=== PATIENT | female | born 1950 | race African-American/Black ===

== ENCOUNTER 2022-06-23 16:36 | Inpatient (IN) | payer OTHER ==
[~2022-06-23] VITALS: Ht 167.6 cm; Wt 58.1 kg
[2022-06-23 16:36] VITALS: BP 70/33
--- NOTE | 2022-06-23 17:08 | NUR ---
IV started, bloodwork obtained, handed to REHAN Andrade at bedside.
[2022-06-23 17:13] LABS: BASOPHILS % (AUTO) 0.2 % (0.0-2.0); HEMATOCRIT 35.7 % (36-48); HEMOGLOBIN 11.9 g/dL (12.0-16.0); LYMPHOCYTES # (AUTO) 0.8 K/uL (2.5-16.5); LYMPHOCYTES % (AUTO) 8.1 % (20.5-51.1); MEAN CORPUSCULAR HEMOGLOBIN 33 pg (27-31); MEAN CORPUSCULAR HGB CONC 33 g/dL (33-37); MEAN CORPUSCULAR VOLUME 98.5 fL (80-94); MONOCYTES # (AUTO) 0.4 K/uL (0.8-1.0); MONOCYTES % (AUTO) 4.1 % (1.7-9.3); NEUTROPHILS # (AUTO) 9.1 K/uL (1.8-7.7); NEUTROPHILS % (AUTO) 87.6 % (42.2-75.2); PLATELET COUNT (AUTO) 115 K/uL (140-450); RED BLOOD CELL COUNT(AUTO) 3.63 MIL/uL (4.20-5.40); RED CELL DISTRIBUTION WIDTH 16.4 % (11.6-13.7); WHITE BLOOD COUNT (AUTO) 10.3 K/uL (4.8-10.8)
[2022-06-23 17:25] LABS: PROTHROMBIN TIME 12.1 secs (10.8-13.4)
[2022-06-23] MEDS ORDERED: NACL 0.9% 1,000 ML IV ONE (17:30)
--- NOTE | 2022-06-23 17:30 | NUR ---
DR. VENTURA EVALUATING PATIENT AT BEDSIDE.
[2022-06-23] MEDS ORDERED: PANTOPRAZOLE 40 MG INJ VIAL IVP ONE (17:40)
[2022-06-23] MEDS ORDERED: PIPERACILLIN/TAZOBACTAM 3.375 GM in DEXTROSE 5% 50 ML IV ONE (17:40)
[2022-06-23] MEDS ORDERED: VANCOMYCIN 1,000 MG in DEXTROSE 5% 250 ML IV ONE (17:40)
--- NOTE | 2022-06-23 17:40 | NUR ---
RYDER-CARE PROVIDED, PATIENT WAS NOTED WITH A MODERATE AMOUNT OF BLOOD DRAINING FROM HER RECTUM. DR. VENTURA WAS MADE AWARE. PATIENT WAS MADE CLEAN AND DRY.
[2022-06-23 17:41] LABS: ALBUMIN 2.1 g/dL (3.4-5.0); ANION GAP 13.1 (8-16); ASPARTATE AMINOTRANSFERASE 25 U/L (15-37); CARBON DIOXIDE 25.9 mmol/L (21-32); CHLORIDE 107 mmol/L (98-107); CREATININE 0.5 mg/dL (0.6-1.3); GLUCOSE 108 mg/dL (74-106); LIPASE 92 U/L (73-393); SODIUM SERUM 142 mmol/L (136-145); TOTAL BILIRUBIN 0.6 mg/dL (0.0-1.0); UREA NITROGEN, BLOOD 13 mg/dL (7-18)
--- NOTE | 2022-06-23 18:30 | NUR ---
71 y/o female biba from home d/t rectal bleeding x today. Per patients daughter, at noon she changed her moms diaper and saw nothing but blood in diaper. Patient had no BM. Per daughter patient is at baseline. Patient denies any pain at this time. Medical History: HTN, HLD, Brain tumors, Right sided deficit, quadriplegic, seizures NKDA
--- NOTE | 2022-06-23 18:40 | NUR ---
Consent signed per patients daughter agreeing to administration of blood. Blood has been type and crossmatched. Blood sent from blood bank. Information on unit of blood checked against patient wristband at bedside by two nurses. All information matches. Patient or responsible democrat informed of potential complications associated with blood transfusion. Informed of possible transfusion reaction symptoms. Aware of need to notify nurse at once of itching, shortness of breath, flushing, feeling of impending doom, or other symptoms not previously present. Vital signs taken within 5 minutes prior to initiation of transfusion. RN/TRAY WORKER will remain with patient for first 15 minutes of transfusion at which time vital signs will be re-assessed.
--- NOTE | 2022-06-23 18:55 | NUR ---
NO REACTION NOTED FROM BLOOD TRANSFUION. RATE INCREASED. PATIENT TOLERATING WELL. NO CHANGE IN VITAL SIGNS.
[2022-06-23] MEDS ORDERED: ACETAMINOPHEN 325 MG TAB PO PRN ×2 (19:25→19:30)
[2022-06-23] MEDS ORDERED: MORPHINE SULFATE 2 MG/ML SYR IVP PRN ×2 (19:25→19:30)
[2022-06-23] MEDS ORDERED: ONDANSETRON 4 MG/2 ML VIAL IVP PRN ×2 (19:25→19:30)
[2022-06-23] MEDS ORDERED: DOCUSATE SODIUM 100 MG GELCAP PO PRN (19:30)
[2022-06-23] MEDS ORDERED: ZOLPIDEM 10 MG TAB PO PRN (19:30)
[2022-06-23] MEDS ORDERED: VANCOMYCIN PER PHARMACY MC PRN (19:30)
[2022-06-23] MEDS ORDERED: MAG SULF 2000 MG/WATER PREMIX 50 ML IV PRN (19:30)
[2022-06-23] MEDS ORDERED: POTASSIUM CHLORIDE 10 MEQ TABER PO PRN (19:30)
--- NOTE | 2022-06-23 19:30 | NUR ---
Patient report given to BAHMAN Hoffman. Transfer of care at this time. Blood transfusion continues to run. Patient tolerating well.
--- NOTE | 2022-06-23 19:48 | NUR ---
per ermd stop blood transfusion and take pt to ct. blood transfusion stopped at 1947. vss temp 97.9 hr: 71 rr 14 113/73
--- NOTE | 2022-06-23 19:55 | NUR ---
PT TAKEN TO CT
--- NOTE | 2022-06-23 19:56 | NUR ---
heather daughter [phone]
[2022-06-23] MEDS ORDERED: VANCOMYCIN 1GM/DEXT 5% PREMIX 200 ML IV SCH (21:00)
--- NOTE | 2022-06-23 22:10 | NUR ---
flight radio operator at bedside
[2022-06-23] MEDS ORDERED: VANCOMYCIN 1,000 MG VIAL ONE (22:11)
--- NOTE | 2022-06-23 22:35 | NUR ---
Chart checked and completed.
--- NOTE | 2022-06-23 22:35 | NUR ---
Patient will be admitted to care of . Admited to TELEMTRY. Will go to [facility]. Belongings list completed. Report to EBONIE.
--- NOTE | 2022-06-23 22:35 | NUR ---
DR VENTURA AT BEDSIDE EXPLAINING ADMIT STAY TO PT AND PT DAUGHTER CHANTE
[2022-06-23 23:06] VITALS: BP 124/84
[2022-06-23 23:30] LABS: BASOPHILS % (AUTO) 0.1 % (0.0-2.0); HEMATOCRIT 35.5 % (36-48); LYMPHOCYTES # (AUTO) 0.9 K/uL (2.5-16.5); LYMPHOCYTES % (AUTO) 8.4 % (20.5-51.1); MEAN CORPUSCULAR HEMOGLOBIN 33 pg (27-31); MEAN CORPUSCULAR HGB CONC 34 g/dL (33-37); MEAN CORPUSCULAR VOLUME 97.6 fL (80-94); MONOCYTES # (AUTO) 0.6 K/uL (0.8-1.0); MONOCYTES % (AUTO) 5.5 % (1.7-9.3); PLATELET COUNT (AUTO) 92 K/uL (140-450); RED BLOOD CELL COUNT(AUTO) 3.64 MIL/uL (4.20-5.40); RED CELL DISTRIBUTION WIDTH 15.7 % (11.6-13.7); WHITE BLOOD COUNT (AUTO) 10.5 K/uL (4.8-10.8)
[2022-06-23] MEDS: NACL 0.9% 1,000 ML IV SCH (23:36)
[2022-06-23] MEDS ORDERED: PIPERACILLIN/TAZOBACTAM 2.25 GM VIAL IV ONE (23:38)
[2022-06-23] MEDS: PIPERACILLIN/TAZOBACTAM 2.25 GM in DEXTROSE 5% 50 ML IV SCH (23:51)
[2022-06-24] VITALS (8 sets, daily range): BP systolic 102–151; BP diastolic 35–101
--- NOTE | 2022-06-24 00:28 | NUR ---
WAIT KIYA TO PROVIDE STRAIGHT CATH .
--- NOTE | 2022-06-24 00:41 | NUR ---
PT'S DAUGHTER - CHANTE [phone] - WILL CALL ABOUT PT'S VACCINATION HX .
--- NOTE | 2022-06-24 03:32 | NUR ---
PER DR. STEPHANIE CAI HGB , HCT NOW - THEN TRANSFUSE [address] NOBLE STAT . - WILL CARRY OUT . Addendum: 06/24/22 at 0439 by Gabriela Iglesias RN URINE COLLECTED VIA S STRAIGHT CATH - COLLECTED NON BLOODY URINE - PROCEDURE - TOLERATED BY PT - URINE SPECIMEN WILL SEND TO LAB .
--- NOTE | 2022-06-24 03:40 | NUR ---
DIAPER CHANGE - THERE IS 1 LARGE DIAPER FULLY SOAKED OF BLOOD - BP 116/78 , WI 66 , O2 SAT 96 5 - WILL REFER TO DR BROWN . Addendum: 06/24/22 at 736 by Gabriela Iglesias RN PER DR. BROWN REFER TO DR. NOBLE STAT Addendum: 06/24/22 at 0738 by Gabriela Iglesias RN PER DR NOBLE TRANSFER TOP ICU - FOR BOWEL PREP , FOR COLONOSCOPY AT 10 AM - INFORM LIQUEFACTION PLANT OPERATOR , ICU . Addendum: 06/24/22 at 0739 by Gabriela Iglesias RN INFORM CHANTE - DR. NOBLE PLANS TO DO COLONOSCOPY TODAY BY DR. NOBLE . CHANTE NEEDS FURTHER EXPLANTION ABOUT THE PROCEDURE PRIOR TO GIVE TEL. CONSENT - WILL ENDORSE TO ICU NURSE .
[2022-06-24 03:56] LABS: BASOPHILS % (AUTO) 0.2 % (0.0-2.0); HEMATOCRIT 32.4 % (36-48); HEMOGLOBIN 10.9 g/dL (12.0-16.0); LYMPHOCYTES # (AUTO) 1.1 K/uL (2.5-16.5); LYMPHOCYTES % (AUTO) 11.8 % (20.5-51.1); MEAN CORPUSCULAR HEMOGLOBIN 33 pg (27-31); MEAN CORPUSCULAR HGB CONC 34 g/dL (33-37); MEAN CORPUSCULAR VOLUME 98.6 fL (80-94); MONOCYTES # (AUTO) 0.6 K/uL (0.8-1.0); MONOCYTES % (AUTO) 6.2 % (1.7-9.3); NEUTROPHILS % (AUTO) 81.8 % (42.2-75.2); PLATELET COUNT (AUTO) 89 K/uL (140-450); RED BLOOD CELL COUNT(AUTO) 3.28 MIL/uL (4.20-5.40); WHITE BLOOD COUNT (AUTO) 9.8 K/uL (4.8-10.8)
--- NOTE | 2022-06-24 04:59 | NUR ---
PHONE CALL TO DR BROWN, MADE AWARE PT WILL BE TRANSFERRED TO ICU AT THIS TIME.PHYSICIAN ORDERED 2 UNITS PRBC, LATEST HGB 10.9/HCT 32.4(035), DR BROWN SAID TO JUST GIVE 1 UNIT PRBC FOR NOW.ALSO NOTIFIED DR BROWN THAT THERE WAS AN ORDER FOR PROTONIX 80MG IVP X1 EARLIER, NOT GIVEN YET, PHYSICIAN SAID TO GIVE THE PROTONIX 80MG IVP WHEN PT GETS TO ICU AND THEN PROTONIX 40MG DAILY.
[2022-06-24] MEDS ORDERED: PANTOPRAZOLE 40 MG INJ VIAL IVP SCH ×2 (05:10→09:00)
--- NOTE | 2022-06-24 05:10 | NUR ---
TRANSFER TO ICU - PT - STABLE .
--- NOTE | 2022-06-24 05:15 | NUR ---
RECEIVED PT FROM TELEMETRY AWAKE,ALERT.SR NOTED ON MONITOR.ON ROOM AIR.NO SOB NOTED.PERIPHERAL IV TO RT F/A G20 INTACT, ORDERED IVF INFUSING, NPO MAINTAINED, W/G TUBE CLAMPED.INCONTINENT OF URINE.SKIN INTACT.SLIGHT RECTAL BLEEDING NOTED,DARK RED IN COLOR.DENIES PAIN AT THIS TIME.
[2022-06-24] MEDS ORDERED: SUPREP BOWEL PREP KIT 354 ML SOLN.RECON PO SCH ×2 (05:35→09:00)
[2022-06-24] MEDS: NACL 0.9% 1,000 ML IV SCH (05:36)
[2022-06-24] MEDS ORDERED: PIPERACILLIN/TAZOBACTAM 2.25 GM VIAL IV ONE ×2 (06:00→06:01)
--- NOTE | 2022-06-24 06:30 | NUR ---
STARTED 1 UBIT BLOOD TRANSFUSION PER DR BROWN'S ORDER.VERIFIED WITH RN CAROL CASTILLO. PT AFEBRILE, WITH SIGNED CONSENT
--- NOTE | 2022-06-24 06:35 | NUR ---
PHONE CALL FROM BRISEIDA OWUSU, HE SAID HE ALREADY SPOKE WITH PTS DAUGHTER CHANTE, TO GET A CONSENT FROM PTS DAUGHTER. ALSO TO GIVE THE SURE PREP 177ML THEN 2ND BOTTLE TO BE GIVEN AT 10 AM, ALSO TO GIVE 200ML OF WATER EVERY 2 HOURS X 2 DOSES.TO GET CONSENT FOR EGD AND COLONOSCOPY
[2022-06-24 07:17] LABS: APPEARANCE,URINE SL CLOUDY (CLEAR); BILIRUBIN,URINE NEGATIVE (NEGATIVE); BLOOD, URINE 2+ (NEGATIVE); COLOR,URINE YELLOW (YELLOW); LEUKOCYTE ESTERASE ,URINE 1+ (NEGATIVE); NITRITE, URINE NEGATIVE (NEGATIVE); PH,URINE 6.5 (5.0-9.0); UGLUCOSE NEGATIVE (NEGATIVE)
[2022-06-24 07:25] LABS: RBC,URINE 0-5 /HPF (0-5)
--- NOTE | 2022-06-24 07:35 | NUR ---
RECEIVED REPORT FROM BRENDON MOTTA FOR CONTINUITY OF CARE. PT A&OX0, UNABLE TO ANSWER QUESTIONS. SR ON MONITOR. 20G IV TO R FA INFUSING NS AT 10 ML/HR. 20G IV TO L FA INFUSING BLOOD TRANSFUSION AT 120 ML/HR. ROOM AIR. G-TUBE IN PLACE, CLAMPED. BOWEL SOUNDS ACTIVE IN ALL QUADRANTS. GENERALIZED WEAKNESS. STANDARD PRECAUTION. CALL LIGHT WITHIN REACH, BED IN LOWEST POSITION. Addendum: 06/24/22 at 0848 by Africa Cooper RN PT ABLE TO ANSWER YES OR NO QUESTIONS.
--- NOTE | 2022-06-24 07:36 | NUR ---
REPORT GIVEN TO CL MOTTA FOR CONTINUITY OF CARE.ONGOING BLOOD TRANSFUSION, NO UNTOWARD REACTIONS NOTED.PT DENIES PAIN.STILL ON ROOM AIR.NO SOB NOTED
--- NOTE | 2022-06-24 07:45 | NUR ---
INFORM CHANTE THE PT.'S DAUGHTER - HER TRANSFERRED TO ICU .
--- NOTE | 2022-06-24 08:05 | NUR ---
SEEN AND EXAMINED BY DR. BROWN.
--- NOTE | 2022-06-24 09:02 | NUR ---
PATIENT HAS BEEN SCREENED AND CATEGORIZED HIGH NUTRITION RISK. PATIENT WILL BE SEEN WITHIN 1-2 DAYS OF ADMISSION. REFERRAL RECEIVED FOR TUBE FEEDING SUSANNE GRIFFITHS [address]
--- NOTE | 2022-06-24 09:50 | NUR ---
SEEN AND EXAMINED BY DR. SANTORO.
[2022-06-24] MEDS: PIPERACILLIN/TAZOBACTAM 2.25 GM in DEXTROSE 5% 50 ML IV SCH ×3 (10:00→17:49)
--- NOTE | 2022-06-24 10:02 | NUR ---
GAVE SECOND BOTTLE OF SURE PREP VIA G-TUBE. FLUSHED WITH 500ML WATER. NO BM OF NOW. Addendum: 06/24/22 at 1046 by Africa Cooper RN TREMAYNE
--- NOTE | 2022-06-24 10:55 | NUR ---
SON AT BEDSIDE. UPDATED ON POC. NO FURTHER QUESTIONS AT THIS TIME.
--- NOTE | 2022-06-24 11:13 | NUR ---
C/O ABD PAIN. MEDICATED WITH PRN MORPHINE 2MG.
[2022-06-24 11:19] LABS: BASOPHILS % (AUTO) 0.3 % (0.0-2.0); EOSINOPHILS % (AUTO) 0.1 % (0.0-4.0); HEMOGLOBIN 14.2 g/dL (12.0-16.0); LYMPHOCYTES # (AUTO) 2.4 K/uL (2.5-16.5); LYMPHOCYTES % (AUTO) 17.5 % (20.5-51.1); MEAN CORPUSCULAR HEMOGLOBIN 31 pg (27-31); MEAN CORPUSCULAR HGB CONC 33 g/dL (33-37); MEAN CORPUSCULAR VOLUME 93.7 fL (80-94); MONOCYTES # (AUTO) 0.8 K/uL (0.8-1.0); MONOCYTES % (AUTO) 6.1 % (1.7-9.3); NEUTROPHILS # (AUTO) 10.3 K/uL (1.8-7.7); PLATELET COUNT (AUTO) 108 K/uL (140-450); RED BLOOD CELL COUNT(AUTO) 4.59 MIL/uL (4.20-5.40); RED CELL DISTRIBUTION WIDTH 15.4 % (11.6-13.7); WHITE BLOOD COUNT (AUTO) 13.5 K/uL (4.8-10.8)
[2022-06-24 11:37] LABS: ALBUMIN 1.8 g/dL (3.4-5.0); ASPARTATE AMINOTRANSFERASE 27 U/L (15-37); CARBON DIOXIDE 21.1 mmol/L (21-32); CHLORIDE 113 mmol/L (98-107); CREATININE 0.4 mg/dL (0.6-1.3); GLUCOSE 94 mg/dL (74-106); MAGNESIUM 1.9 mg/dL (1.8-2.4); POTASSIUM 4.1 mmol/L (3.5-5.1); SODIUM SERUM 143 mmol/L (136-145); TOTAL BILIRUBIN 1.1 mg/dL (0.0-1.0); UREA NITROGEN, BLOOD 14 mg/dL (7-18)
--- NOTE | 2022-06-24 13:05 | NUR ---
06/24/22 RD INITIAL ASSESSMENT COMPLETED PLEASE REFER TO NUTRITION ASSESSMENT UNDER CARE ACTIVITY FOR ESTIMATED NUTRITIONAL NEEDS. 1. WHEN/IF MEDICALLY APPROPRIATE, RECOMMEND JEVITY 1.2 WITH A GOAL RATE OF 50 ML/HR WITH PROSOURCE TID -FWF: 150 ML Q6H OR PER MD -START AT 10 ML/HR AND INCREASE BY 10 ML Q4H TOLERATED -WILL PROVIDE 100% OF ESTIMATED NUTRIENT NEEDS 2. MONITOR GI SYMPTOMS AND GASTRIC RESIDUALS 3. RD TO FOLLOW-UP 2-3 DAYS, HIGH RISK SUSANNE GRIFFITHS RD
[2022-06-24] MEDS ORDERED: MIDAZOLAM 5 MG/5 ML VIAL ONE (13:25)
[2022-06-24] MEDS ORDERED: fentaNYL citrate 0.05 MG/ML VIAL ONE (13:25)
--- NOTE | 2022-06-24 13:40 | NUR ---
PT HAD LARGE BM, BRICK RED COLORED. LOOSE WITH SOME SOLID PIECES. CLEANED AND REPOSITIONED.
--- NOTE | 2022-06-24 13:45 | NUR ---
PT. WITH LOW VINCENZO SCALE AT MODERATE TO HIGH RISK, CONTINUE TO FOLLOW PRESSURE INJURY PREVENTION INTERVENTIONS. -POSITIONING: TURN AND REPOSITION PATIENT Q 2H OR SOONER USE PILLOWS TO KEEP BONY PROMINENCES FROM DIRECT CONTACT WITH SURFACES USE REPOSITIONING WEDGES TO PROVIDE 30-DEGREE ANGLE FOR SIDE LYING POSITIONS OFFLOADING OR FOAM DRESSING TO ALL TUBING TO PREVENT MEDICAL DEVICES RELATED PRESSURE INJURY -RE-EVALUATING AND MANAGING INCONTINENCE MONITOR SKIN CONDITION DURING POSITION CHANGE DO NOT MASSAGE REDNESS, BONY PROMINENCES FREQUENT RYDER-CARE AND PROVIDE BARRIER CREAMS PRN IF SOILING MOISTURE CONTROL BY OFFER BED SAENZ/URINAL /ABSORBENT PAD TO WICK AND HOLD MOISTURE KEEP SKIN DRY AND PROTECT FROM FRICTION -MANAGE FRICTION/SHEAR/MOBILITY KEEP HOB AT THE LOWEST LEVEL OF ELEVATION NO MORE THAN 30 DEGREE UNLESS OTHERWISE CONTRAINDICATED USE LIFT SHEET OR TRANSFER DEVICE TO MOVE PATIENT AND PREVENT LATERAL SHEER. PROTECT HEELS, ELBOWS BONY PROMINENCES WITH SKIN BERRIES OR FOAM DRESSING IF EXPOSED TO FRICTION OFFLOAD BILATERAL HEELS BY PLACING PILLOWS UNDER CALVES AT ALL TIMES, UNLESS OTHERWISE CONTRAINDICATED -PRESSURE REDISTRIBUTION SURFACE THERAPY SEVERO ISOFLEX MATTRESS -NUTRITION: PLEASE FOLLOW RD RECOMMENDATIONS AND OFFER NUTRITION SUPPLEMENTS IF ORDERED. PLEASE CONTACT WOUND CARE NURSE FOR ANY QUESTION AND CHANGE OF WOUND CONDITION.
[2022-06-24 13:46] LABS: BASOPHILS % (AUTO) 0.2 % (0.0-2.0); EOSINOPHILS % (AUTO) 0.1 % (0.0-4.0); HEMATOCRIT 36.5 % (36-48); HEMOGLOBIN 12.7 g/dL (12.0-16.0); LYMPHOCYTES # (AUTO) 1.5 K/uL (2.5-16.5); LYMPHOCYTES % (AUTO) 14.1 % (20.5-51.1); MEAN CORPUSCULAR HEMOGLOBIN 33 pg (27-31); MEAN CORPUSCULAR HGB CONC 35 g/dL (33-37); MEAN CORPUSCULAR VOLUME 94.6 fL (80-94); MONOCYTES # (AUTO) 0.6 K/uL (0.8-1.0); MONOCYTES % (AUTO) 5.2 % (1.7-9.3); NEUTROPHILS # (AUTO) 8.8 K/uL (1.8-7.7); NEUTROPHILS % (AUTO) 80.4 % (42.2-75.2); PLATELET COUNT (AUTO) 75 K/uL (140-450); RED BLOOD CELL COUNT(AUTO) 3.86 MIL/uL (4.20-5.40); RED CELL DISTRIBUTION WIDTH 16.2 % (11.6-13.7); WHITE BLOOD COUNT (AUTO) 10.9 K/uL (4.8-10.8)
--- NOTE | 2022-06-24 13:50 | NUR ---
PT TRANSPORTED TO OR FOR COLONOSCOPY AND EGD. VSS.
[2022-06-24 13:55] LABS: ANION GAP 13.2 (8-16); CARBON DIOXIDE 23.9 mmol/L (21-32); CHLORIDE 118 mmol/L (98-107); CREATININE 0.4 mg/dL (0.6-1.3); GLUCOSE 138 mg/dL (74-106); POTASSIUM 3.1 mmol/L (3.5-5.1); SODIUM SERUM 152 mmol/L (136-145); UREA NITROGEN, BLOOD 16 mg/dL (7-18)
--- NOTE | 2022-06-24 14:35 | NUR ---
PT RETURNED FROM OR WITH BOLUS OF NS RUNNING D/T HYPOTENSION SECONDARY TO VERSED AND FENTANYL IVP FOR PROCEDURE.
[2022-06-24] MEDS ORDERED: MIDAZOLAM 2 MG/2 ML VIAL IVP ONE (14:40)
[2022-06-24] MEDS ORDERED: fentaNYL citrate 0.05 MG/ML VIAL IVP ONE (14:40)
[2022-06-24] MEDS ORDERED: MAGNESIUM CITRATE 300 ML BTL GT SCH (15:00)
--- NOTE | 2022-06-24 15:20 | NUR ---
LARGE LIQUID BM, BRICK RED COLOR. CLEANED AND REPOSITIONED WITH AMAYA MOTTA.
[2022-06-24] MEDS: POTASSIUM CHLORIDE 20% 40 MEQ/15 ML UDC GT PRN (15:27)
--- NOTE | 2022-06-24 16:05 | NUR ---
DC PLANNIN YRS OLD FEMALE PATIENT WAS ADMITTED FROM HOME WITH A DX OF GI BLEED. PATIENT HAS A HX OF MULTIPLE BRAIN TUMORS ,RSW HTN, HLD CAD AND PEG TUBE. CXR AND CT ABD ANGIO SHOWED RT AND LEFT SMALL PLEURAL EFFUSION. RAPID COVID TEST NEGATIVE. ADMINISTERED IVF, IV ABX VANCO AND ZOSYN . URINE AND BLOOD CULTURE PENDING. CONSULTED WITH BRISEIDA GUEVARA. DC PLAN TO GO HOME WHEN STABLE. CM TO FOLLOW Addendum: 06/28/22 at 1553 by Danielle Salas RN DC PLANNING: PATIENT HAS A DC ORDER TO SNF FOR REHAB AND IV ABX. RECEIVED A CALL FROM [facility] SPOKE WITH SIGRID STATED NO BED AVAILABLE. CM TO FOLLOW Addendum: 06/29/22 at 1527 by Kristen Walters CM DC PLANNING: CM SPOKE AT LENGTH WITH THE PATIENTS DAUGHTER JAMES BY PHONE TO DISCUSS PLACEMENT AND INSURANCE COVERAGE. THE PATIENT HAS 43 CO-INSURANCE SNF DAYS, DAUGHTER WOULD HAVE TO PAY OUT OF POCKET THE PATIENT HAS NO SECONDARY AND WILL BE MEDICARE UNTIL Jul. PATIENT DECLINED BY SAW VAUGHN LEFT A MESSAGE FOR [facility] ADMISSIONS AND FAXED TO [facility] PER JAMES'S REQUEST. YRN EXPLAINED THAT THE PATIENT HAS BEEN DISCHARGED FROM .. SHE IS NOT ABLE TO PARTICIPATE OR PROGRESS WITH THERAPY. PER JAMES THE PATIENT HAS BEEN BEDBOUND SINCE FEBRUARY OF THIS YEAR. YRN WILL SPEAK WITH JAMES IN THE MORNING REGARDING SNF CHOICES VS HOME AND WILL FOLLOW FOR NEEDS. Addendum: 06/30/22 at 1316 by Kristen Walters CM DC PLANNING: PATIENT DECLINED BY [facility], PATIENTS DAUGHTER JAMES IN AGREEMENT WITH [facility]. BASSAM FROM [facility] WILL SPEAK WITH JAMES REGARDING THE CO-PAY, YRN HAS ASKED FOR ROOM ASSIGNMENT AND TRANSFER TODAY. YRN WILL FOLLOW. Addendum: 06/30/22 at 1537 by Kristen Walters CM DC PLANNING: PATIENT ACCEPTED TO [facility], ROOM 15A, DR SOUSA TO FOLLOW. TRANSFER CLERK TIME 1630 BY [employer] ([phone]), NUMBER TO CALL REPORT IS [phone]. CM WILL FOLLOW.
--- NOTE | 2022-06-24 16:19 | NUR ---
STARTED TUBE FEEDING. JEVITY 1.2 AT 10ML/HR, FWF 150ML Q6H.
--- NOTE | 2022-06-24 16:24 | NUR ---
DC PLANNING SAW OUTREACHED TO PATIENTS DAUGHTER, JAMES TO GATHER COLLATERAL INFORMATION. JAMES REPORTS PATIENT RESIDES WITH HER AT THE ADDRESS LISTED. PATIENT IS BEDBOUND AND IS TOTAL CARE. PATIENT IS ON HOME HOSPICE CARE AND WILL RESUME HOSPICE CARE, ONCE DC. JAMES REPORTS THAT PT WAS WITH SN[facility], [facility], PRIOR TO HOME HOSPICE. DC PLAN IS FOR PT TO RETURN HOME, ON HOME HOSPICE. Addendum: 06/28/22 at 1127 by Lore QUEVEDO SAW SPOKE WITH PT'S DAUGHTER WALLY WHO REPORTED THAT AFTER SPEAKING WITH PHYSICIAN, DC PLAN WOULD BE FOR PATIENT TO BE PLACED IN SNF CARE FOR [place] AND REHAB CARE. WALLY REPORTED THAT PATIENT WOULD NOT BE RETURNING TO HOSPICE CARE. WALLY REQUESTED REFERRAL FOR STEPH ROBERTO. SAW FAXED PACKET TO JESUS LINCOLN, AT [facility], FOR REVIEW. SAW TO FOLLOW Addendum: 06/28/22 at 1516 by Lore QUEVEDO SAW OUTREACHED TO JESUS TO FOLLOW UP ON PACKET SENT OVER. JESUS REPORTED WORKING WITH ADMIN DIRECTOR TO ACCEPT PATIENTMerle LEE TO FOLLOW UP. SAW SENT PACKET TO AD[facility]AL [facility]. PACKET SENT TO [facility], [facility], [facility]. SAW TO FOLLOW Addendum: 06/28/22 at 1542 by Lore QUEVEDO SAW OUTREACHED TO JESUS FROM [facility] FOR UPDATE ON REFERRAL SENT OVER. SAW LEFT MESSAGE REQUESTING A RETURN PHONE CALL FOR UPDATE. Addendum: 06/28/22 at 1605 by Lore QUEVEDO FIELDED CALL FROM [facility]OL[facility] WHO REPORTED NO BEDS AVAIL. AT THIS TIME Addendum: 06/28/22 at 1635 by Lore QUEVEDO SW FOLLOWED UP WITH [facility] AND SPOKE TO HAY INTAKE/ ADMISSION COORDINATOR WHO REPORTS FACILITY IS MAXED OUT ON FEEDING TUBE PT'S AND CAN NOT TAKE PT AT THIS TIME. Addendum: 06/28/22 at 1636 by Lore QUEVEDO CM FIELDED CALL FROM SHAKILA DIAZ, WHO REPORTED NO BEDS AVAIL. AT THIS TIME. Addendum: 06/29/22 at 1427 by Lore QUEVEDO SAW FAXED OVER PACKET TO [facility]. Addendum: 06/29/22 at 1431 by Lore QUEVEDO SAW FOLLOWED UP WITH [place] IN ADMISSION AT [facility] TO FOLLOW UP ON REFERRAL SENT OVER HOWEVER, UNSUCCESSFUL. SAW LEFT MESSAGE REQUESTING A RETURN PHONE CALL. Addendum: 06/30/22 at 1051 by Lore QUEVEDO SAW FIELDED CALL FROM SANDOR AT [facility] WHO IS REQUESTING UPDATE ON PATIENTS COVID VACCINE STATUS. SAW OUTREACHED TO PATIENTS DAUGHTER WHO REPORTED PATIENTS FIRST DOSE 12/01, SECOND DOSE 12/22 AND BOOSTER 10/21. SAW PROVIDED TAMMIE AT [facility] WITH INFORMATION. TAMMIE REPORTED THAT TALI DORANTES WILL REVIEW AND SHE WILL FOLLOW UP WITH STATUS. Addendum: 06/30/22 at 1052 by Lore QUEVEDO PATIENTS DAUGHTER REQUESTING MEDICAL INFORMATION. INFORMED HER THAT SAW WILL PASS ALONG INFORMATION TO CITLALLI AT [facility]. SAW PROVIDED CITLALLI WITH DAUGHTERS CONTACT INFORMATION.
[2022-06-24] MEDS: VANCOMYCIN 1,000 MG in DEXTROSE 5% 250 ML IV SCH (16:28)
[2022-06-24] MEDS: POLYETHYLENE GLYCOL 17 GM/PKT GT SCH (17:32)
--- NOTE | 2022-06-24 18:40 | NUR ---
PT HAD A LARGE LIQUID BM, MORE BROWN IN COLOR THIS TIME. PT URINATED DURING CHANGING. NOTED CLEAR YELLOW URINE OUTPUT. CLEANED AND REPOSITIONED WITH AMAYA MOTTA.
--- NOTE | 2022-06-24 19:12 | NUR ---
ENDORSED REPORT TO CAROL WINE CONSULTANT RN FOR CONTINUITY OF CARE.
[2022-06-24] MEDS: PANTOPRAZOLE 40 MG INJ VIAL IVP SCH (21:49)
--- NOTE | 2022-06-24 22:03 | NUR ---
PATIENT AWAKE LYING IN BED TOTAL CARE HAS G-TUBE RECEIVING [id number] HOUR. WATER FLUSH 125 CC EVERY FOUR HOUR. PATIENT ON 2 LITERS N/C SAT 97% LUNGS DIMINISH TO LISTEN. SINUS ON MONITOR. HAS 20 GA IN BOTH WRIST. BOTH PATENT. NO DISTRESS NOTED.
[2022-06-25] VITALS: BP 118/72
[2022-06-25] MEDS: PIPERACILLIN/TAZOBACTAM 2.25 GM in DEXTROSE 5% 50 ML IV SCH ×3 (02:00→20:12)
[2022-06-25 04:00] VITALS: BP 96/40
--- NOTE | 2022-06-25 07:30 | NUR ---
RECEIVED REPORT FROM BRENDON.. PT SLEEPING QUIETLY , SKIN DRY AND WARM TO TOUCH ON O2 2L/NC IV FLUID HAS GATE #20 INFUSING NS AT 100ML/H,PT INCONTINENT OF URINE. NO BM AT THIS TIME.
--- NOTE | 2022-06-25 07:45 | NUR ---
RECEIVED PT ON 2L NASAL CANNULA. SATURATION IS 98%
[2022-06-25 08:00] VITALS: BP 128/71
[2022-06-25 08:02] LABS: HEMATOCRIT 36.5 % (36-48); HEMOGLOBIN 12.5 g/dL (12.0-16.0); MEAN CORPUSCULAR HEMOGLOBIN 32 pg (27-31); MEAN CORPUSCULAR HGB CONC 34 g/dL (33-37); MEAN CORPUSCULAR VOLUME 94.7 fL (80-94); PLATELET COUNT (AUTO) 73 K/uL (140-450); RED BLOOD CELL COUNT(AUTO) 3.85 MIL/uL (4.20-5.40); RED CELL DISTRIBUTION WIDTH 16.7 % (11.6-13.7)
[2022-06-25 08:27] LABS: ANION GAP 14.2 (8-16); CARBON DIOXIDE 21.7 mmol/L (21-32); CHLORIDE 113 mmol/L (98-107); CREATININE 0.4 mg/dL (0.6-1.3); GLUCOSE 128 mg/dL (74-106); SODIUM SERUM 147 mmol/L (136-145); UREA NITROGEN, BLOOD 9 mg/dL (7-18)
[2022-06-25 08:40] LABS: POTASSIUM 1.9 mmol/L (3.5-5.1)
--- NOTE | 2022-06-25 08:42 | NUR ---
LAB CALL POTASSIUM RESULT IS 1.9 .DR LISA PORTER.
[2022-06-25] MEDS: PANTOPRAZOLE 40 MG INJ VIAL IVP SCH ×2 (09:08→21:27)
[2022-06-25] MEDS: POTASSIUM CHLORIDE 20% 40 MEQ/15 ML UDC GT PRN (09:09)
[2022-06-25] MEDS: POLYETHYLENE GLYCOL 17 GM/PKT GT SCH ×3 (09:09→16:35)
[2022-06-25] MEDS ORDERED: POTASSIUM CHLORIDE 40 MEQ, LIDOCAINE MPF 1% 25 MG in NACL 0.9% 250 ML IV SCH (10:00)
[2022-06-25 10:15] LABS: LYMPHOCYTES % (MANUAL) 8 % (20-46); METAMYELOCYTES % 1 % (0-0); MONOCYTES % (MANUAL) 4 % (5-12)
[2022-06-25 12:00] VITALS: BP 101/58
--- NOTE | 2022-06-25 12:00 | NUR ---
INCONTINENT URINE AND STOOL.
[2022-06-25] MEDS: POTASSIUM CHLORIDE 40 MEQ, LIDOCAINE MPF 1% 25 MG in NACL 0.9% 250 ML IV SCH ×2 (14:30→16:42)
[2022-06-25 16:00] VITALS: BP 126/76
[2022-06-25] MEDS: VANCOMYCIN 1,000 MG in DEXTROSE 5% 250 ML IV SCH ×2 (16:42→17:00)
[2022-06-25 17:43] LABS: ANION GAP 12.6 (8-16); CARBON DIOXIDE 14.8 mmol/L (21-32); CHLORIDE 124 mmol/L (98-107); CREATININE 0.2 mg/dL (0.6-1.3); GLUCOSE 96 mg/dL (74-106); POTASSIUM 3.4 mmol/L (3.5-5.1); SODIUM SERUM 148 mmol/L (136-145); UREA NITROGEN, BLOOD 5 mg/dL (7-18)
--- NOTE | 2022-06-25 17:50 | NUR ---
VISIT BY DAUGHTER AT BED SIDE,
--- NOTE | 2022-06-25 18:39 | NUR ---
NOTIFIED DR. GONZALEZ OF CRITICAL LAB VALUE CALCIUM 4.8. ORDERS RECEIVED TO GIVE CALCIUM GLUCONATE 2GM IV ONCE.
[2022-06-25] MEDS ORDERED: CALCIUM GLUC 1 GM/50 mL NS BAG 50 ML IV ONE ×2 (18:40→20:49)
--- NOTE | 2022-06-25 19:30 | NUR ---
REPORT GIVE TO CAROL MOTTA.
--- NOTE | 2022-06-25 19:35 | NUR ---
RECEIVED ENDORSEMENT FROM DAY SHIFT (ÁNGELA RAMÍREZ) WILL CONTINUE WITH CURRENT PLAN OF CARE
[2022-06-25 20:00] VITALS: BP 130/69
--- NOTE | 2022-06-25 21:15 | NUR ---
RECEIVED PHONE CALL FROM PATIENT'S DTR WALLY REQUESTING UPDATE ON PATIENT STATUS. ALL QUESTIONS ANSWERED.
[2022-06-26] VITALS (14 sets, daily range): BP systolic 93–148; BP diastolic 49–102
[2022-06-26] MEDS: PIPERACILLIN/TAZOBACTAM 2.25 GM in DEXTROSE 5% 50 ML IV SCH ×3 (01:58→17:22)
--- NOTE | 2022-06-26 04:45 | NUR ---
CVT TECH AT BEDSIDE FOR BLOOD DRAW; PER CVT TECH: PATIENT REFUSED BLOOD DRAW. CVT TECH STATES THAT SHE INFORMED CHARGE NURSE.
--- NOTE | 2022-06-26 05:47 | NUR ---
RT AT BEDSIDE REGARDING O2 SATURATION. PATIENT REFUSES TO WEAR NASAL CANNULA. CURRENT O2 SAT = 84%. PROBE IS ATTACHED TO PATIENT'S RIGHT EAR LOBE. UNABLE TO PLACE ON FINGERS DUE TO VERY LONG NAILS. SLIGHT MANIPULATION OF PROBE ON EAR CAUSED READING TO BECOME ABOVE 90. PER RT; NO PERFUSION ISSUES DETECTED. WILL INFORM NEXT SHIFT TO BRING THEIR OWN PROBE TO MONITOR PATIENT'S O2 SATURATION .
--- NOTE | 2022-06-26 07:30 | NUR ---
RECEIVED REPORT FROM CAROL MOTTA. PT. IS SLEEPING ON ROOM AIR ,SKIN DRY AND WARM TO TOUCH COLOR PING. IV FLUID ON RT WRIST #20 INFUSE NS AT 100ML/HS . HAS CLEAR YELLOW URINE VAI CHRISTIANCK.
[2022-06-26 08:39] LABS: BASOPHILS % (AUTO) 0.2 % (0.0-2.0); EOSINOPHILS % (AUTO) 0.5 % (0.0-4.0); HEMATOCRIT 34.3 % (36-48); HEMOGLOBIN 11.8 g/dL (12.0-16.0); MEAN CORPUSCULAR HEMOGLOBIN 33 pg (27-31); MEAN CORPUSCULAR HGB CONC 35 g/dL (33-37); MEAN CORPUSCULAR VOLUME 95.5 fL (80-94); MONOCYTES # (AUTO) 0.3 K/uL (0.8-1.0); MONOCYTES % (AUTO) 4.6 % (1.7-9.3); NEUTROPHILS # (AUTO) 5.7 K/uL (1.8-7.7); PLATELET COUNT (AUTO) 58 K/uL (140-450); RED BLOOD CELL COUNT(AUTO) 3.59 MIL/uL (4.20-5.40); RED CELL DISTRIBUTION WIDTH 16.6 % (11.6-13.7)
--- NOTE | 2022-06-26 09:00 | NUR ---
SEEN BY DR. GONZALEZ ,NO ORDER CHANGE AT THIS TIME.
[2022-06-26 09:07] LABS: ANION GAP 10.9 (8-16); CARBON DIOXIDE 25.8 mmol/L (21-32); CHLORIDE 106 mmol/L (98-107); CREATININE 0.4 mg/dL (0.6-1.3); GLUCOSE 120 mg/dL (74-106); POTASSIUM 3.7 mmol/L (3.5-5.1); SODIUM SERUM 139 mmol/L (136-145); UREA NITROGEN, BLOOD 5 mg/dL (7-18)
[2022-06-26 09:09] LABS: LYMPHOCYTES % (AUTO) 13.9 % (20.5-51.1); NEUTROPHILS % (AUTO) 80.8 % (42.2-75.2)
[2022-06-26] MEDS: VANCOMYCIN 1,000 MG in DEXTROSE 5% 250 ML IV SCH ×2 (09:15→20:58)
[2022-06-26] MEDS: PANTOPRAZOLE 40 MG INJ VIAL IVP SCH ×2 (09:15→20:57)
[2022-06-26] MEDS: POLYETHYLENE GLYCOL 17 GM/PKT GT SCH ×3 (09:16→16:35)
[2022-06-26] MEDS ORDERED: MAG SULF 2000 MG/WATER PREMIX 50 ML IV ONE (11:50)
--- NOTE | 2022-06-26 16:18 | NUR ---
REPOSITION SLIN CARE GIVEN HAS SMALL BROWN BM.
[2022-06-26] MEDS ORDERED: NACL 0.9% 1,000 ML IV SCH (17:30)
--- NOTE | 2022-06-26 19:07 | NUR ---
PT RESTING QUIETLY REPORT GOIVE TO CAROL MOTTA FOR CONTINUE CARE.
--- NOTE | 2022-06-26 19:20 | NUR ---
REPORT GIVE TO NIGHT SHIFTOR CONTINUE CARE.
--- NOTE | 2022-06-26 19:27 | NUR ---
RECEIVED REPORT FROM DAY SHIFT (ÁNGELA RAMÍREZ). PATIENT ON MAINTENANCE FLUID.
--- NOTE | 2022-06-26 22:26 | NUR ---
PATIENT HAS ORDERS TO TRANSFER TO TELE. WILL ENDORSE PATIENT TO TELE NURSE WHEN BED BECOMES AVAILABLE
[2022-06-27] VITALS: BP 106/65
--- NOTE | 2022-06-27 01:25 | NUR ---
PATIENT TRANSFERRED TO TELEMETRY, RM 121B. ENDORSED PATIENT TO TELE NURSE (ADRIÁN).
[2022-06-27] MEDS: PIPERACILLIN/TAZOBACTAM 2.25 GM in DEXTROSE 5% 50 ML IV SCH ×3 (01:28→17:17)
--- NOTE | 2022-06-27 01:28 | NUR ---
GET THE ICU REPORT FROM ICU NURSE GEOFFREY, PATIENT IS LYING ON BED, PATIENT IS ALERT ORIENTED X1, NO ANY COMPLAIN OF PAIN OR SHORTNESS OF BREATH AT THIS TIME,JAZMIN SIGN IS WITHIN THE NORMAL RANGE, ALL FALL PRECAUTION MEASURE ARE IN PLACE, CALL LIGHT IS WITHIN THE REACH, WILL CONTINUE TO MONITOR PATIENT.
[2022-06-27 04:00] VITALS: BP 105/50
--- NOTE | 2022-06-27 04:41 | NUR ---
VITAL SIGN IS WITHIN THE NORMAL RANGE, NO ANY COMPLAIN OF PAIN OR SHORTNESS OF BREATH AT THIS TIME, CALL LIGHT IS WITHIN THE REACH, WILL CONTINUE TO MONITOR PATIENT.
--- NOTE | 2022-06-27 07:21 | NUR ---
GAVE THE REPORT TO MORNING NURSE JOSH FOR CONTINUOS OF CARE, PATIENT IS STABLE.
[2022-06-27 08:00] VITALS: BP 144/73
--- NOTE | 2022-06-27 08:00 | NUR ---
OPENING NOTES: RECEIVED FROM SENIOR MEDICAL TRANSCRIPTIONIST RN. PATIENT RESTING IN BED. BREATHING EVEN AND NON LABORED TO RA. G TUBE AND IV INFUSING WELL. NO S/S OF ACUTE DISTRESS NOTED. BED LOCKED, ALARM ON AND IN LOWEST POSITION. CALL LIGHT WITHIN REACH.
[2022-06-27] MEDS: PANTOPRAZOLE 40 MG INJ VIAL IVP SCH ×2 (09:27→20:59)
[2022-06-27] MEDS: POLYETHYLENE GLYCOL 17 GM/PKT GT SCH ×3 (09:27→17:16)
[2022-06-27 09:31] LABS: BASOPHILS % (AUTO) 0.1 % (0.0-2.0); EOSINOPHILS % (AUTO) 0.4 % (0.0-4.0); HEMATOCRIT 32.9 % (36-48); HEMOGLOBIN 11.4 g/dL (12.0-16.0); LYMPHOCYTES # (AUTO) 0.7 K/uL (2.5-16.5); LYMPHOCYTES % (AUTO) 10.3 % (20.5-51.1); MEAN CORPUSCULAR HEMOGLOBIN 33 pg (27-31); MEAN CORPUSCULAR HGB CONC 35 g/dL (33-37); MEAN CORPUSCULAR VOLUME 95.3 fL (80-94); MONOCYTES # (AUTO) 0.3 K/uL (0.8-1.0); MONOCYTES % (AUTO) 4.8 % (1.7-9.3); NEUTROPHILS # (AUTO) 5.6 K/uL (1.8-7.7); NEUTROPHILS % (AUTO) 84.4 % (42.2-75.2); PLATELET COUNT (AUTO) 60 K/uL (140-450); RED BLOOD CELL COUNT(AUTO) 3.46 MIL/uL (4.20-5.40); RED CELL DISTRIBUTION WIDTH 16.9 % (11.6-13.7); WHITE BLOOD COUNT (AUTO) 6.7 K/uL (4.8-10.8)
[2022-06-27] MEDS: VANCOMYCIN 1,000 MG in DEXTROSE 5% 250 ML IV SCH (09:31)
[2022-06-27 09:50] LABS: ANION GAP 7.8 (8-16); CARBON DIOXIDE 29.4 mmol/L (21-32); CHLORIDE 108 mmol/L (98-107); CREATININE 0.4 mg/dL (0.6-1.3); GLUCOSE 131 mg/dL (74-106); POTASSIUM 3.2 mmol/L (3.5-5.1); SODIUM SERUM 142 mmol/L (136-145); UREA NITROGEN, BLOOD 8 mg/dL (7-18)
--- NOTE | 2022-06-27 10:07 | NUR ---
STOPPED THE RUNNING VANCO PER PHARMACIST: RECEIVED THE VANCO TROUGH 27.3. INFORMED THE PHARMACIST. PER PHARMACIST, STOP THE RUNNING VANCO GIVEN AT 0931. DR. BROWN ALSO INFORMED THRU SMS.
[2022-06-27] MEDS ORDERED: DOCU-299 PO (11:49)
[2022-06-27] MEDS ORDERED: POLY17PD46 GT (11:49)
[2022-06-27] MEDS ORDERED: PIPE50SO5 IV (11:49)
[2022-06-27 12:00] VITALS: BP 148/75
--- NOTE | 2022-06-27 15:18 | NUR ---
06/27/22 RD FOLLOW UP COMPLETED PLEASE REFER TO NUTRITION ASSESSMENT UNDER CARE ACTIVITY FOR ESTIMATED NUTRITIONAL NEEDS. 1. CONTINUE JEVITY 1.2 @ 45 ML/HR TOLERATED -FWF: 150 ML Q6H OR PER MD 2. RECOMMEND PROSOURCE TID FOR NUTRITION SUPPORT -WITH PROSOURCE TID, PT WILL RECEIVE 96% ESTIMATED KCAL AND 100% ESTIMATED PROTEIN NEEDS; ADEQUATE 3. RD TO FOLLOW-UP 7 DAYS, LOW RISK SUSANNE GRIFFITHS RD
[2022-06-27 16:00] VITALS: BP 138/79
[2022-06-27] MEDS: POTASSIUM CHLORIDE 20% 40 MEQ/15 ML UDC GT PRN (17:16)
--- NOTE | 2022-06-27 18:50 | NUR ---
CLOSING NOTE: PATIENT RESTING IN BED. NO S/S OF ACUTE DISTRESS NOTED. G TUBE INFUSING WELL. FALL AND SAFETY MEASURES PROVIDED. NEEDS MET THROUGHOUT SHIFT.
--- NOTE | 2022-06-27 19:47 | NUR ---
GET THE REPORT FROM MORNING NURSE SCOTT , PATIENT IS LYING ON BED, PATIENT IS ALERT ORIENTED X 1, ALL FALL PRECAUTION MEASURE ARE IN PLACE, CALL LIGHT IS WITHIN THE REACH, WILL CONTINUE TO MONITOR PATIENT.
[2022-06-27 20:00] VITALS: BP 109/57
--- NOTE | 2022-06-27 21:00 | NUR ---
PATIENT IS LYING ON BED, NO ANY COMPLAIN OF PAIN OR SHORTNESS OF BREATH AT THIS TIME, VITAL SIGN IS WITHIN THE NORMAL RANGE, ALL SCHEDULE MEDICATION IS GIVEN PER DOCTOR ORDER, CALL LIGHT IS WITHIN THE REACH, WILL CONTINUE TO MONITOR PATIENT.
[2022-06-28] VITALS: BP 115/70
[2022-06-28] MEDS: PIPERACILLIN/TAZOBACTAM 2.25 GM in DEXTROSE 5% 50 ML IV SCH ×3 (01:08→17:24)
[2022-06-28 04:00] VITALS: BP 141/81
--- NOTE | 2022-06-28 04:10 | NUR ---
PATIENT IS LYING ON BED, VITAL SIGN IS WITHIN THE NORMAL RANGE, NO ANY COMPLAIN OF PAIN OR SHORTNESS OF BREATH AT THIS TIME, CALL LIGHT IS WITHIN THE REACH, WILL CONTINUE TO MONITOR PATIENT.
[2022-06-28 05:47] LABS: BASOPHILS % (AUTO) 0.3 % (0.0-2.0); EOSINOPHILS # (AUTO) 0.1 K/uL (0-0.4); EOSINOPHILS % (AUTO) 0.9 % (0.0-4.0); HEMATOCRIT 29.3 % (36-48); HEMOGLOBIN 10.2 g/dL (12.0-16.0); LYMPHOCYTES # (AUTO) 0.9 K/uL (2.5-16.5); LYMPHOCYTES % (AUTO) 14.3 % (20.5-51.1); MEAN CORPUSCULAR HEMOGLOBIN 33 pg (27-31); MEAN CORPUSCULAR HGB CONC 35 g/dL (33-37); MEAN CORPUSCULAR VOLUME 94.9 fL (80-94); MONOCYTES # (AUTO) 0.4 K/uL (0.8-1.0); MONOCYTES % (AUTO) 6.3 % (1.7-9.3); NEUTROPHILS # (AUTO) 4.7 K/uL (1.8-7.7); NEUTROPHILS % (AUTO) 78.2 % (42.2-75.2); PLATELET COUNT (AUTO) 60 K/uL (140-450); RED BLOOD CELL COUNT(AUTO) 3.08 MIL/uL (4.20-5.40); RED CELL DISTRIBUTION WIDTH 16.6 % (11.6-13.7)
[2022-06-28 06:57] LABS: ANION GAP 10.2 (8-16); CARBON DIOXIDE 26.2 mmol/L (21-32); CHLORIDE 112 mmol/L (98-107); CREATININE 0.4 mg/dL (0.6-1.3); GLUCOSE 124 mg/dL (74-106); POTASSIUM 3.4 mmol/L (3.5-5.1); SODIUM SERUM 145 mmol/L (136-145); UREA NITROGEN, BLOOD 9 mg/dL (7-18)
--- NOTE | 2022-06-28 07:20 | NUR ---
GAVE THE REPORT TO MORNING NURSE KEITH FOR CONTINUOS OF CARE , PATIENT IS STABLE.
--- NOTE | 2022-06-28 07:23 | NUR ---
RECEIVED REPORT FROM WORKERS COMPENSATION ADJUSTER NURSE FOR CONTINUITY OF CARE, POC DISCUSSED. PT IS RESTING IN BED WITH EYES CLOSED, ON ROOM AIR, NO S/S OF DISTRESS. RUNNING GTUBE, SALINE LOCK. CONNECTED TO [facility]. DC ORDER PLACED, PENDING SNF PLACEMENT. ALL SAFETY MEASURES IN PLACE, CALL LIGHT WITHIN REACH. WILL CONTINUE TO MONITOR.
[2022-06-28 08:00] VITALS: BP 140/76
[2022-06-28] MEDS ORDERED: VANCOMYCIN 1,000 MG in DEXTROSE 5% 250 ML IV SCH (09:00)
--- NOTE | 2022-06-28 09:14 | NUR ---
SPOKE WITH PRINCESS, SOD STRIPPER REGARDING PTS PLAN TO BE DISCHARGED TO SNF. STATED SHE WILL WORK ON IT AND SPEAK WITH .
--- NOTE | 2022-06-28 09:30 | NUR ---
NOE MEDICATION ADMINISTERED PER MD ORDER. PT TOLERATED ADMINISTRATION. PT IV PATENT AND INTACT. TOLERATING TUBE FEEDING WELL WITH 5ML RESIDUAL. PUREE WICK CANISTER CHANGED. ALL SAFETY MEASURES IN PLACE, CALL LIGHT WITHIN REACH. WILL CONTINUE TO MONITOR.
[2022-06-28] MEDS: POLYETHYLENE GLYCOL 17 GM/PKT GT SCH ×3 (09:46→17:24)
[2022-06-28] MEDS: PANTOPRAZOLE 40 MG INJ VIAL IVP SCH ×2 (09:46→21:18)
--- NOTE | 2022-06-28 10:34 | NUR ---
PT HAS BEEN CLEANED, REPOSITIONED AND NEW GOWN AND LINENS PROVIDED. SMALL BM NOTED. PT TOLERATED CLEANING. ALL SAFETY MEASURES IN PLACE, CALL LIGHT WITHIN REACH. WILL CONTINUE TO MONITOR.
[2022-06-28 12:00] VITALS: BP 139/79
[2022-06-28] MEDS: POTASSIUM CHLORIDE 20% 40 MEQ/15 ML UDC GT PRN (13:21)
--- NOTE | 2022-06-28 13:48 | NUR ---
NOE MEDICATION ADMINISTERED PER MD ORDER, PT TOLERATED ADMINISTRATION. PT STABLE IN BED. IV PATENT, SALINE LOCK. 2ML RESIDUAL NOTED ON GTUBE, FLUSHED PRIOR TO AND AFTER ADMINISTRATION. NEW TUBING AND FEEDING STARTED. PT TOLERATING FEEDING. ALL SAFETY MEASURES IN PLACE, CALL LIGHT WITHIN REACH. WILL CONTINUE TO MONITOR.
[2022-06-28 16:00] VITALS: BP 138/68
--- NOTE | 2022-06-28 16:13 | NUR ---
ORDER FROM DR REGARDING INCREASE IN FREE WATER FLUSHES HAVE BEEN INITIATED, NO RUNNING AT 45 CC WITH FREE WATER FLUSHES OF 200 Q4.
--- NOTE | 2022-06-28 17:25 | NUR ---
NOE MEDICATION ADMINISTERED PER MD ORDER, PT TOLERATED ADMINISTRATION. PT CLEANED, BM NOTED. ALL SAFETY MEASURES IN PLACE, CALL LIGHT WITHIN REACH. WILL CONTINUE TO MONITOR.
--- NOTE | 2022-06-28 18:40 | NUR ---
ALL NEEDS HAVE BEEN MET THROUGHOUT THE SHIFT, ALL SAFETY MEASURES IN PLACE, CALL LIGHT WITHIN REACH. WILL ENDORSE TO PRODUCTION SUPERVISOR TRAINEE NURSE.
[2022-06-28 20:00] VITALS: BP 129/76
--- NOTE | 2022-06-28 21:18 | NUR ---
ADMINISTERED SCHEDULED MEDICATION PER MD ORDER.
[2022-06-29] VITALS: BP 136/81
[2022-06-29] MEDS: PIPERACILLIN/TAZOBACTAM 2.25 GM in DEXTROSE 5% 50 ML IV SCH ×3 (02:18→20:51)
--- NOTE | 2022-06-29 02:18 | NUR ---
SCHEDULED ZOSYN IVPB ADMINISTERED ORDERED BY .
--- NOTE | 2022-06-29 03:45 | NUR ---
PATIENT WAS CLEANED, CHANGED AND REPOSITIONED.
[2022-06-29 04:00] VITALS: BP 128/70
--- NOTE | 2022-06-29 04:50 | NUR ---
MADE ROUNDS PATIENT SLEEPING. NO SOB NOTED. BREATHING EVEN UNLABORED.
--- NOTE | 2022-06-29 07:01 | NUR ---
PATIENT SLEEPING, NO ACUTE DISTRESS NOTED. RESPIRATION EVEN UNLABORED. ALL SAFETY PRECAUTIONS ARE IN PLACE. CALL LIGHT WITHIN REACH. WILL ENDORSE TO THE MORNING SHIFT FOR CONTINUITY OF CARE.
--- NOTE | 2022-06-29 07:30 | NUR ---
RECEIVED REPORT FROM [employer]URCH HISTORY TEACHER FOR CONTINUITY OF CARE, CHURCH HISTORY TEACHER EVENTS REVIEWED. NO CHANGE IN POC. PT STABLE IN BED WITH NO S/S OF DISTRESS ON TELE MONITOR. ALL SAFETY MEASURES IN PLACE, CALL LIGHT WITHIN REACH. WILL CONTINUE TO MONITOR.
--- NOTE | 2022-06-29 07:32 | NUR ---
PATIENT IS STABLE. ENDORSED PATIENT TO MORNING SHIFT RN FOR CONTINUITY OF CARE.
[2022-06-29 08:00] VITALS: BP 138/87
--- NOTE | 2022-06-29 09:30 | NUR ---
NOE MEDICATION ADMINISTERED PER MD ORDER, PT TOLERATED ADMINISTRATION. NO RESIDUAL NOTED, FLUSHED PRIOR TO AND AFTER ADMINISTRATION. IV PATENT AND INTACT RUNNING TKO. PUREWICK IN PLACE CONNECTED TO SUCTION. NO S/S OF ACUTE DISTRESS. ALL SAFETY MEASURES IN PLACE, CALL LIGHT WITHIN REACH. WILL CONTINUE TO MONITOR.
[2022-06-29] MEDS: PANTOPRAZOLE 40 MG INJ VIAL IVP SCH ×2 (09:47→20:51)
[2022-06-29] MEDS: POLYETHYLENE GLYCOL 17 GM/PKT GT SCH ×3 (09:47→17:02)
--- NOTE | 2022-06-29 11:15 | NUR ---
PT HAS BEEN CLEANED, NEW LINENS AND GOWN PROVIDED. PT STABLE. ALL NEEDS ARE BEING MET. ALL SAFETY MEASURES IN PLACE, CALL LIGHT WITHIN REACH. WILL CONTINUE TO MONITOR.
[2022-06-29 12:00] VITALS: BP 148/72
--- NOTE | 2022-06-29 13:15 | NUR ---
NOE MEDICATION ADMINISTERED PER MD ORDER, PT TOLERATED ADMINISTRATION. NO RESIDUAL, FLUSHED PRIOR TO AND AFTER ADMINISTRATION. ALL SAFETY MEASURES IN PLACE, CALL LIGHT WITHIN REACH. WILL CONTINUE TO MONITOR.
--- NOTE | 2022-06-29 15:09 | NUR ---
NOTIFIED REGARDING PT DAUGHTER REQUESTING A CALL TO DISCUSS AN MRI OF THE HEAD TO BE ORDERED FOR PT. STATED SHE WILL CALL.
[2022-06-29 16:00] VITALS: BP 134/81
--- NOTE | 2022-06-29 17:30 | NUR ---
NOE MEDICATION ADMINISTERED PER MD ORDER, PT TOLERATED ADMINISTRATION. NO RESIDUAL NOTED, FLUSHED PRIOR TO AND AFTER ADMINISTRATION. NEW TUBE FEEDING STARTED. PT CLEANED AND REPOSITIONED, LARGE BM NOTED. ALL SAFETY MEASURES IN PLACE, CALL LIGHT WITHIN REACH. WILL CONTINUE TO MONITOR.
--- NOTE | 2022-06-29 18:43 | NUR ---
ALL NEEDS HAVE BEEN MET THROUGHOUT THE SHIFT. PT REMAINED STABLE. ALL SAFETY MEASURES IN PLACE, CALL LIGHT WITHIN REACH. WILL ENDORSE TO HOUSEKEEPING AND LAUNDRY TEAM LEADER.
--- NOTE | 2022-06-29 18:44 | NUR ---
RECEIVED REPORT FROM KEITH RN, PATIENT WAS STABLE DURING SHIFT CHANGE. PATIENT WAS NOTED AWAKE BUT NON-VERBAL.PATIENT TURNED HER HEAD IN NURSED DIRECTION WHEN HER NAME WAS CALLED. PATIENT HAS NO NOTED S/S OF PAIN AT THIS TIME. NO NOTED RESPIRATORY DISTRESS. SIDE RAILS UP X 4 FOR SAFETY AND COMFORT. CALL LIGHT WITHIN REACH FOR ENTERTAINMENT AND MENTAL STIMULATION OF THE TV. NURSING WILL FREQUENT HER ROOM FOR ANTICIPATED ASSISTANCE AND NEEDS. [email or web address]
[2022-06-29 20:00] VITALS: BP 139/87
--- NOTE | 2022-06-29 20:00 | NUR ---
Patient's Plan of Care was discussed and reviewed with BAHMAN: STEVENSON
--- NOTE | 2022-06-29 21:20 | NUR ---
PATIENT REMAINS STABLE STABLE IN HER BED. NURSING NOTED CHEST RISING AND FALLING WITHOUT INCIDENT. PATIENT WAS NOTED ASLEEP BUT EASILY AROUSED BY CALLING HER NAME PATIENT HAS NO NOTED S/S OF PAIN AT THIS TIME. NO NOTED RESPIRATORY DISTRESS. SIDE RAILS UP X 3 FOR SAFETY AND COMFORT. CALL LIGHT WITHIN REACH FOR ALL ASSISTANCE AND NEEDS. NURSING WILL FREQUENT HIS ROOM FOR ANTICIPATED ASSISTANCE. [email or web address]
--- NOTE | 2022-06-29 23:41 | NUR ---
PATIENT WAS CHANGED BY NURSING AND [employer] PROFILER. REPLACED PURWICK BECAUSE OF BOWEL MOVEMENT COVERED IT. PATIENT REMAIN CLEAN AND DRY. CHEST NOTED RISING AND FALLING EVENLY WITHOUT DISTRESS. NO NOTED S/S OF PAIN/DISCOMFORT. SIDE RAILS UP X 3 FOR SAFETY AND COMFORT. NURSING WILL FREQUENT THIS ROOM FOR ANTICIPATED NEEDS AND ASSISTANCE. CALL LIGHT WITHIN REACH. [email or web address]
[2022-06-30] VITALS: BP 149/79
--- NOTE | 2022-06-30 01:25 | NUR ---
PATIENT IN BED ASLEEP. CHEST RISING AND FALLING WITHOUT DISTRESS. NO NOTED S/S OF PAIN/DISCOMFORT. CALL LIGHT WITHIN REACH. SIDERAILS UP X 3. NURSING WILL FREQUENT THIS ROOM IN ANTICIPATION TO NEEDS. [email or web address]
[2022-06-30 04:00] VITALS: BP 144/77
--- NOTE | 2022-06-30 04:26 | NUR ---
PATIENT NOTED STILL IN BED ASLEEP. CHEST RISING AND FALLING WITHOUT DISTRESS. NO NOTED S/S OF PAIN/DISCOMFORT. CALL LIGHT WITHIN REACH. SIDE RAILS UP X 3. NURSING WILL FREQUENT THIS ROOM IN ANTICIPATION TO NEEDS. [email or web address]
[2022-06-30] MEDS: PIPERACILLIN/TAZOBACTAM 2.25 GM in DEXTROSE 5% 50 ML IV SCH ×2 (04:36→13:24)
--- NOTE | 2022-06-30 05:56 | NUR ---
PATIENT REMAINS CLEAN AND DRY BY NURSING AND DATASTAGE DEVELOPER. PATIENT WAS GIVEN NEW PUREWICK TO REDUCE MOISTURE TO THE BODY FOR POSSIBLE SKIN EAR. AM SHIFT WILL BE ENDORSED OF THE X 2 WATERY STOOL. [email or web address]
[2022-06-30 07:16] LABS: ANION GAP 8.6 (8-16); CHLORIDE 110 mmol/L (98-107); CREATININE 0.4 mg/dL (0.6-1.3); GLUCOSE 126 mg/dL (74-106); POTASSIUM 3.6 mmol/L (3.5-5.1); SODIUM SERUM 144 mmol/L (136-145); UREA NITROGEN, BLOOD 8 mg/dL (7-18)
[2022-06-30 07:29] LABS: BASOPHILS % (AUTO) 0.4 % (0.0-2.0); EOSINOPHILS % (AUTO) 0.7 % (0.0-4.0); LYMPHOCYTES # (AUTO) 1.2 K/uL (2.5-16.5); LYMPHOCYTES % (AUTO) 20.7 % (20.5-51.1); MEAN CORPUSCULAR HEMOGLOBIN 33 pg (27-31); MEAN CORPUSCULAR HGB CONC 35 g/dL (33-37); MEAN CORPUSCULAR VOLUME 95.7 fL (80-94); MONOCYTES # (AUTO) 0.4 K/uL (0.8-1.0); MONOCYTES % (AUTO) 7.2 % (1.7-9.3); NEUTROPHILS # (AUTO) 4.2 K/uL (1.8-7.7); PLATELET COUNT (AUTO) 90 K/uL (140-450); RED BLOOD CELL COUNT(AUTO) 3.34 MIL/uL (4.20-5.40); RED CELL DISTRIBUTION WIDTH 16.5 % (11.6-13.7); WHITE BLOOD COUNT (AUTO) 5.8 K/uL (4.8-10.8)
--- NOTE | 2022-06-30 07:30 | NUR ---
ENDORSE CHARGE NURSE NOHEMY RN, TO RECEIVING NURSE KEITH MOTTA. PATIENT WAS STABLE DURING SHIFT REPORT. [email or web address]
[2022-06-30 08:00] VITALS: BP 123/70
--- NOTE | 2022-06-30 08:15 | NUR ---
RECEIVED REPORT FROM CENTRAL STERILE TECH FOR CONTINUITY OF CARE, NIGHT EVENTS DISCUSSED. PT STABLE IN BED WITH FLACC 0, NO ACUTE S/S OF DISTRESS. ALL SAFETY MEASURES IN PLACE, CALL LIGHT WITHIN REACH. WILL CONTINUE TO MONITOR.
--- NOTE | 2022-06-30 09:50 | NUR ---
NOE MEDICATION ADMINISTERED PER MD ORDER, PT TOLERATED ADMINISTRATION. NO RESIDUAL NOTED, FLUSHED WITH 10CC PRIOR TO AND AFTER ADMINISTRATION. IV PATENT AND INTACT. PT REPOSITIONED IN BED. ON TELE MONITOR. RUNNING TUBE FEEDING, ALL SAFETY MEASURES IN PLACE, CALL LIGHT WITHIN REACH. WILL CONTINUE TO MONITOR.
[2022-06-30] MEDS: POLYETHYLENE GLYCOL 17 GM/PKT GT SCH ×2 (09:58→13:24)
[2022-06-30] MEDS: PANTOPRAZOLE 40 MG INJ VIAL IVP SCH (09:58)
--- NOTE | 2022-06-30 11:30 | NUR ---
PT HAS BEEN CLEANED, REPOSITIONED, AND NEW LINENS PROVIDED. LARGE LOOSE BM NOTED. ALL SAFETY MEASURES IN PLACE, CALL LIGHT WITHIN REACH. WILL CONTINUE TO MONITOR.
[2022-06-30 12:00] VITALS: BP 133/71
--- NOTE | 2022-06-30 13:00 | NUR ---
NOE MEDICATION ADMINISTERED PER MD ORDER, PT TOLERATED ADMINISTRATION. 5ML RESIDUAL NOTED. FLUSHED PRIOR TO AND AFTER ADMINISTRATION. IV PATENT. PT STABLE WITH NO S/S OF ACUTE DISTRESS, ALL SAFETY MEASURES IN PLACE, CALL LIGHT WITHIN REACH. WILL CONTINUE TO MONITOR.
--- NOTE | 2022-06-30 14:35 | NUR ---
NOTED IV SITE HAVE DRIED BLOOD, OLD DRESSING REMOVED, ASSESSED, STILL PATENT WITH BLOOD RETURN. NEW DRESSING APPLIED. PT STABLE. ALL SAFETY MEASURES IN PLACE, CALL LIGHT WITHIN REACH. WILL CONTINUE TO MONITOR.
--- NOTE | 2022-06-30 16:16 | NUR ---
PT HAS BEEN CLEANED, PLACED IN A DIAPER. IV PATENT AND INTACT. GTUBE IN PLACE. PERSONNEL BELONGINGS IN POSSESSION. ALL DISCHARGE PAPERWORK AND INSTRUCTIONS PROVIDED TO PT AND TRANSPORT PERSONNEL. FULL REPORT GAVE TO LAUREN MOTTA FROM [facility]. PT IS STABLE.
== END 2022-06-30 16:20 | DRG 871 ==
LOC: MED 16:36 → MTU 19:27 → MMU 22:43 → MIC 06-24 05:10 → MTU 06-27 00:40
PROVIDERS: ADMIT Family Medicine; ATTEND Family Medicine
PROC: 30233N1 Transfusion of Nonautologous Red Blood Cells into Peripheral Vein, Percutaneous Approach (ICD-10-PCS; principal; 2022-06-23)
DX: A41.9 Sepsis, unspecified organism (principal); R57.1 Hypovolemic shock; R65.21 Severe sepsis with septic shock; K56.49 Other impaction of intestine; N39.0 Urinary tract infection, site not specified; E87.0 Hyperosmolality and hypernatremia; K56.41 Fecal impaction; K52.9 Noninfective gastroenteritis and colitis, unspecified; G31.84 Mild cognitive impairment of uncertain or unknown etiology; E87.6 Hypokalemia; I25.10 Atherosclerotic heart disease of native coronary artery without angina pectoris; I10 Essential (primary) hypertension; D49.6 Neoplasm of unspecified behavior of brain; Z20.822 Contact with and (suspected) exposure to COVID-19; E78.5 Hyperlipidemia, unspecified; Z90.710 Acquired absence of both cervix and uterus; Z87.891 Personal history of nicotine dependence; Z93.1 Gastrostomy status; Z74.01 Bed confinement status
CPT/HCPCS: 36415; 36430; 71045; 80048; 80053; 80202; 81001; 83605; 83690; 83735; 84100; 84484; 85025; 85610; 85730; 86886; 86900; 86901; 86920; 87040; 87081; 87086; 93005; 96365; 97163-GP; 99291; C9113; J0610; J2001; J2250; J2270; J2543; J3010; J3370; J3475; J3480; J7030; J7060; P9016; Q0092; Q9967